=== PATIENT | female | born 1995 | race Caucasian/White ===

== ENCOUNTER 2016-08-30 11:08 | Outpatient (CLI) | payer BC, OTHER ==
[2016-09-14 11:13] LABS: QUANTIFERON(R) - TB GOLD NEGATIVE
[2016-09-14 11:14] LABS: NIL 0.04; TB-NIL <0.00
== END 2016-08-30 11:09 | disposition home or self-care (01) ==
LOC: LAB 11:08
PROVIDERS: ATTEND Anesthesiology
DX: Z02.1 Encounter for pre-employment examination (principal)
CPT/HCPCS: 36415; 86480